=== PATIENT | male | born 1950 | race African-American/Black ===

== ENCOUNTER 2017-08-09 18:51 | Inpatient (IN) | payer OTHER ==
[~2017-08-09] VITALS: Ht 180.3 cm; Wt 68.0 kg
[2017-08-09] MEDS ORDERED: SODIUM CHLORIDE 0.9% 1,000 ML IV ONE (19:15)
[2017-08-09 19:52] LABS: BASOPHILS % 1.1 % (0.0-2.0); EOSINOPHILS % 1.7 % (0.0-5.0); HEMATOCRIT. 36.3 % (42.0-52.0); HEMOGLOBIN. 12.3 g/dL (14.0-18.0); LYMPHOCYTES % 25.3 % (20.0-50.0); MEAN CORPUSCULAR HEMOGLOBIN 32.6 pg (28.0-32.0); MEAN CORPUSCULAR VOLUME 96.2 fL (80.0-94.0); MEAN PLATELET VOLUME 7.5 fl (7.4-10.4); MONOCYTES % 6.5 % (2.0-8.0); NEUTROPHILS % 65.4 % (40.0-76.0); PLATELET 154 x1000/uL (130-400); RED BLOOD CELL COUNT 3.77 mill/uL (4.7-6.1)
[2017-08-09 19:57] LABS: INR 1.1; PROTHROMBIN TIME 11.8 sec (9.4-11.6)
[2017-08-09 20:12] LABS: CARBON DIOXIDE 23 mEq/L (21-32); CHLORIDE 105 mEq/L (98-107); ETHANOL BLOOD < 10 mg/dL
[2017-08-09 20:14] LABS: TROPONIN I 0.89 ng/mL (0.00-0.04)
[2017-08-09] MEDS ORDERED: POTASSIUM CHLORIDE 20MEQ TABLET SR PO NR (20:30)
[2017-08-09] MEDS ORDERED: ASPIRIN 325MG TABLET PO NR (20:30)
[2017-08-09] MEDS ORDERED: SODIUM CHLORIDE 0.9% 1,460 ML IV SCH (20:45)
[2017-08-09] MEDS ORDERED: SODIUM CHLORIDE 0.9% 1000ML BAG (SEPSIS BOLUS) IV ONE (20:45)
[2017-08-09 21:11] LABS: CLARITY URINE CLEAR (CLEAR); COLOR URINE YELLOW (YELLOW); GLUCOSE URINE NEGATIVE (NEGATIVE); KETONES URINE NEGATIVE (NEGATIVE); LEUKOCYTE ESTERASE URINE NEGATIVE (NEGATIVE); NITRITE URINE NEGATIVE (NEGATIVE); OCCULT BLOOD URINE NEGATIVE (NEGATIVE); PROTEIN URINE NEGATIVE (NEGATIVE); SPECIFIC GRAVITY URINE 1.011 (1.005-1.030); UROBILINOGEN URINE 0.2 E.U./dL (0.2-1.0)
[2017-08-09 21:23] LABS: *AMPHETAMINES SCREEN URINE NEGATIVE (NEGATIVE); *BARBITURATES SCREEN URINE NEGATIVE (NEGATIVE); *BENZODIAZEPINES SCREEN URINE NEGATIVE (NEGATIVE); *COCAINE SCREEN URINE NEGATIVE (NEGATIVE); CANNABINOID URINE SCREEN NEGATIVE (NEGATIVE); METHADONE URINE SCREEN NEGATIVE (NEGATIVE); OPIATES URINE SCREEN NEGATIVE (NEGATIVE); PHENCYCLIDINE URINE SCREEN NEGATIVE (NEGATIVE)
[2017-08-09] MEDS ORDERED: DOCUSATE SODIUM 100MG CAPSULE PO PRN (21:45)
[2017-08-09] MEDS ORDERED: MAGNESIUM/ALUMINUM HYDROXIDE/SIMETHICONE 30ML UDC PO PRN (21:45)
[2017-08-09] MEDS ORDERED: LORAZEPAM 2MG/ML CPJ IV PRN (21:45)
[2017-08-09] MEDS ORDERED: ACETAMINOPHEN 325MG TABLET PO PRN (21:45)
[2017-08-09] MEDS ORDERED: NITROGLYCERIN 0.4MG TABLET SL SL PRN (21:45)
[2017-08-09] MEDS ORDERED: GUAIFENESIN 200MG/10ML SUGAR FREE UDC PO PRN (21:45)
[2017-08-09] MEDS ORDERED: ONDANSETRON HCL 4MG/2ML VIAL IV PRN (21:45)
[2017-08-09] MEDS ORDERED: DIPHENHYDRAMINE 50MG/ML VIAL IV PRN (21:45)
[2017-08-09] MEDS ORDERED: IPRATROPIUM/ALBUTEROL 0.5-3(2.5)MG/3ML NEB INH PRN (21:45)
[2017-08-09 22:00] VITALS: BP 111/76
[2017-08-09] MEDS ORDERED: MORPHINE SULFATE 4 MG/ML CPJ (NOT FOR IM USE) IV PRN (22:00)
[2017-08-09] MEDS ORDERED: NA PHOS,M-B/NA PHOS,DI-BA ENEMA 118ML PR PRN (22:00)
[2017-08-09 22:10] LABS: CREATINE KINASE MB FRACTION 5.8 ng/mL (0.5-3.6)
[2017-08-09 22:25] LABS: TROPONIN I 0.83 ng/mL (0.00-0.04)
[2017-08-09 22:26] LABS: FOLIC ACID (FOLATE) SERUM 12.6 ng/mL (>5.38)
[2017-08-09] MEDS ORDERED: ENOXAPARIN 40MG/0.4ML SYR SUBCUT SCH (22:30)
[2017-08-09] MEDS ORDERED: LEVOFLOXACIN 500MG PREMIX 100 ML IV SCH (23:00)
[2017-08-09] MEDS ORDERED: PHEN100C4 PO (23:26)
[2017-08-09] MEDS ORDERED: CEFTRIAXONE 1 G PREMIX 50 ML IV SCH (23:30)
[2017-08-10] VITALS (12 sets, daily range): BP systolic 103–159; BP diastolic 62–110
[2017-08-10] MEDS: ZOLPIDEM TARTRATE 5MG TABLET PO PRN ×2 (00:49→23:04)
[2017-08-10] MEDS: FAMOTIDINE 20MG/2ML VIAL IV SCH ×2 (00:52→20:27)
[2017-08-10] MEDS: ASPIRIN 325MG EC TABLET PO SCH (08:19)
[2017-08-10] MEDS: LEVETIRACETAM 500MG TABLET PO SCH ×2 (08:19→20:28)
[2017-08-10 09:04] LABS: BASOPHILS % 1.3 % (0.0-2.0); EOSINOPHILS % 2.3 % (0.0-5.0); HEMATOCRIT. 33.6 % (42.0-52.0); HEMOGLOBIN. 11.2 g/dL (14.0-18.0); LYMPHOCYTES % 38.4 % (20.0-50.0); MEAN CORPUSCULAR HEMOGLOBIN 32.1 pg (28.0-32.0); MEAN CORPUSCULAR VOLUME 96.5 fL (80.0-94.0); MEAN PLATELET VOLUME 8.1 fl (7.4-10.4); MONOCYTES % 12.1 % (2.0-8.0); NEUTROPHILS % 45.9 % (40.0-76.0); PLATELET 141 x1000/uL (130-400); RED BLOOD CELL COUNT 3.48 mill/uL (4.7-6.1); RED CELL DISTRIBUTION WIDTH 17.9 % (11.6-14.6)
[2017-08-10 09:18] LABS: CARBON DIOXIDE 23 mEq/L (21-32); CHLORIDE 110 mEq/L (98-107)
[2017-08-10] MEDS ORDERED: POTASSIUM CHLORIDE 20MEQ TABLET SR PO NR (10:15)
[2017-08-10 10:17] LABS: CREATINE KINASE MB FRACTION 30.1 ng/mL (0.5-3.6)
[2017-08-10 10:38] LABS: TROPONIN I 4.7 ng/mL (0.00-0.04)
[2017-08-10] MEDS: AMLODIPINE 2.5MG TABLET PO SCH ×2 (10:55→20:28)
[2017-08-10] MEDS ORDERED: ENOXAPARIN 60MG/0.6ML SYR SUBCUT SCH (11:25)
[2017-08-10] MEDS ORDERED: HEPARIN 25,000 UNITS PREMIX 500 ML IV SCH (17:15)
[2017-08-10] MEDS ORDERED: HEPARIN BOLUS PRN aPTT 37-44 IV (18:00)
[2017-08-10] MEDS ORDERED: HEPARIN 5000 UNITS/ML VIAL IV NR (19:30)
[2017-08-10] MEDS: HEPARIN 25,000 UNITS PREMIX 500 ML IV SCH (20:22)
[2017-08-10] MEDS: LEVOFLOXACIN 250MG PREMIX 50 ML IV SCH (20:23)
[2017-08-10] MEDS: CEFTRIAXONE 1 G PREMIX 50 ML IV SCH (20:39)
[2017-08-10] MEDS ORDERED: ACETYLCYSTEINE 200MG/ML 20% VIAL 4ML PO SCH (21:00)
[2017-08-10] MEDS ORDERED: HEPARIN BOLUS PRN aPTT <36 IV (23:00)
[2017-08-10] MEDS ORDERED: MORPHINE SULFATE 10 MG/ML CPJ IV PRN (23:52)
[2017-08-10] MEDS: TRAMADOL 50MG TABLET PO PRN (23:54)
[2017-08-11] VITALS (13 sets, daily range): BP systolic 115–175; BP diastolic 77–114
[2017-08-11 02:19] LABS: *AMPHETAMINES SCREEN URINE NEGATIVE (NEGATIVE); *BARBITURATES SCREEN URINE NEGATIVE (NEGATIVE); *BENZODIAZEPINES SCREEN URINE NEGATIVE (NEGATIVE); *COCAINE SCREEN URINE NEGATIVE (NEGATIVE); CANNABINOID URINE SCREEN NEGATIVE (NEGATIVE); METHADONE URINE SCREEN NEGATIVE (NEGATIVE); OPIATES URINE SCREEN NEGATIVE (NEGATIVE); PHENCYCLIDINE URINE SCREEN NEGATIVE (NEGATIVE)
[2017-08-11 06:42] LABS: BASOPHILS % 1.1 % (0.0-2.0); EOSINOPHILS % 2.6 % (0.0-5.0); HEMATOCRIT. 31.6 % (42.0-52.0); HEMOGLOBIN. 10.7 g/dL (14.0-18.0); LYMPHOCYTES % 36.9 % (20.0-50.0); MEAN CORPUSCULAR VOLUME 97.9 fL (80.0-94.0); MEAN PLATELET VOLUME 8.4 fl (7.4-10.4); MONOCYTES % 11.5 % (2.0-8.0); NEUTROPHILS % 47.9 % (40.0-76.0); PLATELET 120 x1000/uL (130-400); RED BLOOD CELL COUNT 3.23 mill/uL (4.7-6.1); RED CELL DISTRIBUTION WIDTH 17.8 % (11.6-14.6)
[2017-08-11] MEDS: TRAMADOL 50MG TABLET PO PRN (06:59)
[2017-08-11] MEDS: CLONIDINE 0.1MG TABLET PO PRN ×2 (06:59→13:14)
[2017-08-11] MEDS ORDERED: SODIUM CHLORIDE 0.9% 10ML VIAL ONE (08:26)
[2017-08-11] MEDS: LEVETIRACETAM 500MG TABLET PO SCH ×2 (09:22→20:32)
[2017-08-11] MEDS: ASPIRIN 325MG EC TABLET PO SCH (09:22)
[2017-08-11] MEDS: AMLODIPINE 2.5MG TABLET PO SCH (09:23)
[2017-08-11 10:05] LABS: CARBON DIOXIDE 21 mEq/L (21-32); CHLORIDE 113 mEq/L (98-107)
[2017-08-11 10:06] LABS: PHOSPHORUS 2.7 mg/dL (2.5-4.9)
[2017-08-11 10:07] LABS: HDL CHOLESTEROL 48 mg/dL (40-59); LDL CHOLESTEROL 47 mg/dL (5-100)
[2017-08-11] MEDS ORDERED: POTASSIUM CHLORIDE 20MEQ TABLET SR PO NR (10:45)
[2017-08-11] MEDS ORDERED: MAGNESIUM 2 G PREMIX 50 ML IV NR (13:00)
[2017-08-11] MEDS: HEPARIN 25,000 UNITS PREMIX 500 ML IV SCH (18:08)
[2017-08-11] MEDS: FAMOTIDINE 20MG/2ML VIAL IV SCH (20:32)
[2017-08-11] MEDS: LEVOFLOXACIN 250MG PREMIX 50 ML IV SCH (20:32)
[2017-08-11] MEDS: NIFEDIPINE XL 60MG TAB PO SCH (20:34)
[2017-08-11] MEDS: CEFTRIAXONE 1 G PREMIX 50 ML IV SCH (20:34)
[2017-08-11] MEDS ORDERED: AMLODIPINE 5MG TABLET PO SCH (21:00)
[2017-08-11] MEDS: ZOLPIDEM TARTRATE 5MG TABLET PO PRN (23:01)
[2017-08-12] VITALS (12 sets, daily range): BP systolic 101–143; BP diastolic 69–96
[2017-08-12 06:54] LABS: BASOPHILS % 0.4 % (0.0-2.0); EOSINOPHILS % 3.7 % (0.0-5.0); HEMATOCRIT. 33.7 % (42.0-52.0); HEMOGLOBIN. 11.3 g/dL (14.0-18.0); LYMPHOCYTES % 15.5 % (20.0-50.0); MEAN CORPUSCULAR HEMOGLOBIN 32.5 pg (28.0-32.0); MEAN CORPUSCULAR VOLUME 97.1 fL (80.0-94.0); MEAN PLATELET VOLUME 8.6 fl (7.4-10.4); MONOCYTES % 10.1 % (2.0-8.0); NEUTROPHILS % 70.3 % (40.0-76.0); PLATELET 119 x1000/uL (130-400); RED BLOOD CELL COUNT 3.47 mill/uL (4.7-6.1); RED CELL DISTRIBUTION WIDTH 18.2 % (11.6-14.6)
[2017-08-12 07:09] LABS: CARBON DIOXIDE 25 mEq/L (21-32); CHLORIDE 111 mEq/L (98-107); CREATINE KINASE 40 IU/L (39-308); CREATINE KINASE MB FRACTION 6.2 ng/mL (0.5-3.6)
[2017-08-12] MEDS: LEVETIRACETAM 500MG TABLET PO SCH (08:27)
[2017-08-12] MEDS: ASPIRIN 325MG EC TABLET PO SCH (08:28)
[2017-08-12] MEDS: NIFEDIPINE XL 60MG TAB PO SCH (08:28)
[2017-08-12 10:51] LABS: T4 FREE 1.18 ng/dL (0.76-1.46)
[2017-08-12 11:05] LABS: AMMONIA 30 uMol/L (<32)
[2017-08-12] MEDS ORDERED: POTASSIUM CHLORIDE 20MEQ/PACKET PO NR (12:15)
[2017-08-12] MEDS: HEPARIN 25,000 UNITS PREMIX 500 ML IV SCH (16:40)
== END 2017-08-12 20:50 | disposition still patient (30) | DRG 871 ==
LOC: ER 18:51 → CANRESERV 19:45 → ENRESERV 19:45 → 5EST 21:01 → EDBEDREQSVC 21:04 → EDBEDREQTM 21:04 → EDBEDREQ 21:04 → ENRESERV 21:19 → SUPCPDRO 21:31 → 5EST 08-11 12:54
PROVIDERS: ADMIT Internal Medicine; ATTEND Internal Medicine
DX: A41.9 Sepsis, unspecified organism (principal); I21.4 Non-ST elevation (NSTEMI) myocardial infarction; I26.99 Other pulmonary embolism without acute cor pulmonale; N17.0 Acute kidney failure with tubular necrosis; E43 Unspecified severe protein-calorie malnutrition; D69.6 Thrombocytopenia, unspecified; G92 Toxic encephalopathy; E87.2 Acidosis; E83.51 Hypocalcemia; I82.431 Acute embolism and thrombosis of right popliteal vein; I69.354 Hemiplegia and hemiparesis following cerebral infarction affecting left non-dominant side; I95.9 Hypotension, unspecified; K59.00 Constipation, unspecified; D63.8 Anemia in other chronic diseases classified elsewhere; I12.9 Hypertensive chronic kidney disease with stage 1 through stage 4 chronic kidney disease, or unspecified chronic kidney disease; N18.9 Chronic kidney disease, unspecified; E78.00 Pure hypercholesterolemia, unspecified; E87.6 Hypokalemia; E87.70 Fluid overload, unspecified; F17.210 Nicotine dependence, cigarettes, uncomplicated; G40.909 Epilepsy, unspecified, not intractable, without status epilepticus; Z78.1 Physical restraint status; Z79.82 Long term (current) use of aspirin; Z82.49 Family history of ischemic heart disease and other diseases of the circulatory system; Z79.899 Other long term (current) drug therapy; Z68.20 Body mass index [BMI] 20.0-20.9, adult
CPT/HCPCS: 36415; 70450; 71010; 74176; 76770; 78582; 80053; 80061; 80185; 80305; 81003; 82140; 82550; 82553; 82607; 82746; 83036; 83540; 83550; 83605; 83690; 83735; 83880; 84100; 84300; 84439; 84443; 84481; 84484; 85025; 85610; 85730; 86850; 86900; 87040; 87086; 93005; 93306; 93970; 99285; A4216; A9558; G0482; J0696; J1200; J1644; J1650; J1956; J2060; J3475; J3490; J7030; J7050; J7608; A4315